=== PATIENT | male | born 1980 | race Caucasian/White ===

== ENCOUNTER 2016-06-06 14:29 | Emergency (ER) | payer OTHER ==
[~2016-06-06] VITALS: Ht 175.3 cm; Wt 75.0 kg
[2016-06-06 14:42] VITALS: Ht 175.3 cm; Wt 75.0 kg
[2016-06-06] MEDS ORDERED: SOD CHLORIDE 0.9% 1,000 ML IV STA (16:05)
[2016-06-06] MEDS ORDERED: ONDANSETRON 4 MG INJ IV STA (16:05)
[2016-06-06] MEDS ORDERED: LORAZEPAM 2 MG INJ IV ONE ×2 (16:30→18:00)
[2016-06-06] MEDS ORDERED: MECLIZINE 12.5 MG TAB PO ONE (16:30)
[2016-06-06 16:41] LABS: BASOPHILS % 0.4 % (0.0-2.0); EOSINOPHILS # 0.4 10^3/ul (0.0-0.5); EOSINOPHILS % 4.2 % (0.0-7.0); HEMATOCRIT 45.1 % (42.0-52.0); HEMOGLOBIN 15.7 g/dl (14.0-18.0); LYMPHOCYTES % 23.4 % (15.0-51.0); MEAN CORPUSCULAR HEMOGLOBIN 31.5 pg (29.0-33.0); MEAN CORPUSCULAR HGB CONC 34.8 g/dl (32.0-37.0); MEAN CORPUSCULAR VOLUME 90.6 fl (82.0-101.0); MEAN PLATELET VOLUME 7.5 fl (7.4-10.4); MONOCYTE # 0.6 10^3/ul (0.3-0.9); MONOCYTES % 6.9 % (0.0-11.0); NEUTROPHIL # 5.7 10^3/ul (1.6-7.5); NEUTROPHILS % 65.1 % (39.0-77.0); PLATELET COUNT 296 10^3/UL (140-440); RED BLOOD COUNT 4.98 10^6/ul (4.70-6.10); UNCORRECTED WBC 8.7 10^3/ul (4.8-10.8); WHITE BLOOD COUNT 8.7 10^3/ul (4.8-10.8)
[2016-06-06 16:43] LABS: CONDITION 1
--- NOTE | 2016-06-06 16:56 | RADRPT ---
PROCEDURE: CT Brain without contrast. CLINICAL INDICATION: Syncope. TECHNIQUE: A CT of the brain without contrast was performed utilizing axial sections from the skul l base through the vertex. The patient was scanned without intravenous contrast enhancement. Sagitta l and coronal reformatted images were obtained using the data from the axial images. Total exam DLP is 720.23 mGy-cm. CTDIvol is 43.48 mGy. One or more of the following dose reduction techniques we re used: Automated exposure control, adjustment of the mA and/or kV according to patient size, use o f iterative reconstruction technique. COMPARISON: None available FINDINGS: There is normal lawrence-white matter differentiation. The ventricles and cisterns are normal. There is no intracranial hemorrhage or space-occupying lesion. There is no skull fracture or lytic lesion. There is fluid in the left maxillary sinus. IMPRESSION: 1. Fluid in the left maxillary sinus. 2. No intracranial hemorrhage. 3. Otherwise normal noncontrast CT scan of the brain. RPTAT: QQ .Reuben Park MD, MD Date Time Electronically viewed and signed by .Reuben Park MD, on 06/06/2016 16:56 .R/
[2016-06-06 16:58] LABS: POTASSIUM 3.5 mmol/L (3.5-5.1)
[2016-06-06 17:00] LABS: CREATININE 0.94 mg/dl (0.61-1.24)
[2016-06-06 17:01] LABS: CALCIUM 10.1 mg/dl (8.4-10.2)
[2016-06-06] MEDS ORDERED: SOD CHLORIDE 0.9% 1,000 ML IV ONE (18:00)
[2016-06-06 18:14] LABS: D-DIMER 299.67 ng/ml (<460)
--- NOTE | 2016-06-06 18:48 | RADRPT ---
PROCEDURE: XR Chest. CLINICAL INDICATION: Cough, pain TECHNIQUE: Single frontal view of the chest was obtained COMPARISON: None FINDINGS: The heart and mediastinum are within normal limits. The lungs are clear. There is no pleural effusion or pneumothorax. RPTAT: AA IMPRESSION: No acute disease. .Harvinder Moody MD, Date Time Electronically viewed and signed by .Harvinder Moody MD, on 06/06/2016 18:48 .S/
[2016-06-06] MEDS ORDERED: LORA-441 PO (19:21)
--- NOTE | 2016-06-06 19:39 | ERD ---
ER Documentation Chief Complaint Date/Time DATE: 06/06/16 TIME: 19:24 Chief Complaint DIZZINESS,FEELING HEART BEATING FAST,TINGLING SENSATION ON THE HAND.NAUSEA HPI This is a 35-year-old male presents to the ER with chief complaint of dizziness and fast heart rate. Patient states that at 1 PM he started feeling dizzy and the room started spinning. Patient began to feel tunnel vision and became extremely nauseous. Patient states that last Monday he had an MRI of the brain and that contrast was used. My was done because patient has bilateral trigeminal neuralgia. Patient takes gabapentin for trigeminal neuralgia. Since Monday patient states he began to feel nauseous and developed a cough. Patient states that dizziness is worse whenever he gets up. Patient denies any chest pain however admits to some shortness of breath. Patient has not had any head trauma. Patient denies any vision loss or vision changes. ROS 12 point review of systems was done, all negative except per HPI. Medications Home Meds Active Scripts Lorazepam* (Ativan*) 0.5 Mg Tablet, 0.5 MG PO Q8H Y for ANXIETY, #10 TAB Prov:NORA BROWN 06/06/16 Allergies Allergies: Coded Allergies: iodine (Verified Allergy, Intermediate, SOB, 06/06/16) azithromycin (Verified Allergy, Mild, NAUSEA, 06/06/16) levofloxacin (Verified Allergy, Mild, JOINT PAIN, 06/06/16) meperidine (Verified Allergy, Mild, AUDITORY HALLUCINATIONS, 06/06/16) Uncoded Allergies: CT CONTRAST (Allergy, Mild, SOB, 06/06/16) PCN (Allergy, Mild, RASHES, 06/06/16) PMhx/Soc Hx Miscellaneous Medical Probl: Yes (TRIGEMINAL NEURALGIA) Physical Exam Vitals Vital Signs Date Time Temp Pulse Resp B/P Pulse Ox O2 Delivery O2 Flow Rate FiO2 06/06/16 17:51 141 22 144/94 100 Room Air 06/06/16 17:50 101 20 131/83 100 Room Air 06/06/16 17:18 125 06/06/16 14:42 98.1 118 18 141/84 98 Physical Exam GENERAL: The patient is well developed and appropriate for usual state of health , in no apparent distress. HEENT: Atraumatic. Conjunctivae are pink. Pupils equal, round, and reactive to light. Extraocular muscles are grossly intact. No nystagmus. Bilateral tympanic membranes are clear with no evidence of erythema, bulging or perforation. NECK: C-spine is soft and supple. There is no cervical lymphadenopathy. CHEST: Clear to auscultation bilaterally. There are no rales, wheezes or rhonchi. HEART: Regular rate and rhythm. No murmurs, clicks, rubs or gallops. EXTREMITIES: Equal pulses bilaterally. There is no peripheral clubbing, cyanosis or edema. No focal swelling or erythema. Full range of motion. Grossly neurovascularly intact. NEURO: Alert and oriented. Cranial nerves II through XII are intact. Motor strength in all 4 extremities with 5/5 strength. Sensation grossly intact. Normal speech and gait. Negative Rhomberg. +2 DTRs. SKIN: There is no apparent rash or petechia. The skin is warm and dry. Result Diagram: 06/06/16 1625 06/06/16 1625 Results 24 hrs Laboratory Tests Test 06/06/16 16:25 06/06/16 16:36 Anion Gap 19 Basophils # 0.010^3/ul Basophils % 0.4% Blood Urea Nitrogen 15mg/dl Calcium Level 10.1mg/dl Carbon Dioxide Level 25mmol/L Chloride Level 102mmol/L Creatinine 0.94mg/dl D-Dimer 299.67ng/ml D-Dimer Comment Eosinophils # 0.410^3/ul Eosinophils % 4.2% Glucose Level 97mg/dl Hematocrit 45.1% Hemoglobin 15.7g/dl Lymphocytes # 2.010^3/ul Lymphocytes % 23.4% Mean Corpuscular Hemoglobin 31.5pg Mean Corpuscular Hemoglobin Concent 34.8g/dl Mean Corpuscular Volume 90.6fl Mean Platelet Volume 7.5fl Monocytes # 0.610^3/ul Monocytes % 6.9% Neutrophils # 5.710^3/ul Neutrophils % 65.1% Nucleated Red Blood Cells # 0.010^3/ul Nucleated Red Blood Cells % 0.0/100WBC Platelet Count 18661^3/UL Potassium Level 3.5mmol/L Red Blood Count 4.9810^6/ul Red Cell Distribution Width 13.0% Sodium Level 142mmol/L Troponin I < 0.012ng/ml White Blood Count 8.710^3/ul Bedside Glucose 100mg/dL Current Medications Medications (Trade) Dose Ordered Sig/Yoshi Route PRN Reason Start Time Stop Time Status Last Admin Dose Admin Sodium Chloride (NS) 1,000 ml @ 1,000 mls/hr Q1H STAT IV 06/06/16 16:05 06/06/16 17:04 DC 06/06/16 16:33 Ondansetron HCl (Zofran Inj) 4 mg ONCE STAT IV 06/06/16 16:05 06/06/16 16:13 DC 06/06/16 16:32 Meclizine HCl (Antivert) 25 mg ONCE ONCE PO 06/06/16 16:30 06/06/16 16:31 DC 06/06/16 16:33 Lorazepam 1 mg 1 mg ONCE ONCE IV 06/06/16 16:30 06/06/16 16:31 DC 06/06/16 16:33 Sodium Chloride (NS) 1,000 ml @ 1,000 mls/hr Q1H ONCE IV 06/06/16 18:00 06/06/16 18:59 DC 06/06/16 18:21 Lorazepam (Ativan) 1 mg ONCE ONCE IV 06/06/16 18:00 06/06/16 18:03 DC 06/06/16 18:19 Procedures/MDM Differential Diagnosis includes but is not limited to; Benign positional vertigo , labyrinthitis, vertigo, MS, acoustic neuroma, arrhythmia, SD, pulmonary embolism anemia, hypoglycemia, infection, dehydration. This is a 35-year-old male presents to the ER with dizziness and elevated heart rate. EKG was done [address] elevation no T-wave inversion read by Dr. Baker. Troponin was negative, suspicion for acute SD is low. D-dimer was also negative suspicion for , he embolism is low. She does not have any evidence of anemia, hypoglycemia. She is afebrile and does not have an elevation in white blood cells I doubt infection. Patient was given 2 L of fluid and does not appear dehydrated. Patient may have labyrinthitis. He did have an upper respiratory infection last week is not complaining of a spinning sensation. Doubt acute intracranial pathology a CT scan was normal. I discussed this case with Dr. Foster. Because patient's heart rate was elevated every time he sat up we felt that it would be better that he would be admitted to the panel for observation. They should medical decision making, the patient felt more comfortable going home. He stated that he was feeling a little bit better and would like to try outpatient follow-up. Patient is not hypoxic or in any respiratory distress. Through the ER course lorazepam to help patient's feel better, he'll be sent home with lorazepam. Patient needs to follow-up with his primary care doctor and was advised to follow-up with a assistant front end manager as soon as possible. I also called poison control to make sure that patient's contrast even the MRI was not causing his symptoms, per poison control this was not a possibility. Departure Diagnosis: Primary Impression: Dizziness Condition: Stable Patient Instructions: Dizziness, Unk Cause Referrals: DANDRE CAGLE (PCP) Additional Instructions: Call your primary care doctor TOMORROW for an appointment during the next 1-2 days.See the doctor sooner or return here if your condition worsens before your appointment time. PLEASE F/U WITH A SPECIAL DAY CLASS TEACHER! NORA BROWN Jun 06, 2016 19:35
[2016-06-06 19:50] VITALS: BP 131/82; PULSE 102; RESP 22; TEMP 98.3
== END 2016-06-06 19:57 | disposition home or self-care (01) ==
LOC: FTE 14:29
DX: R42 Dizziness and giddiness (principal); R11.0 Nausea
CPT/HCPCS: 36415; 70450; 71010; 80048; 82962; 84484; 85025; 85378; 93005; 96374; 96375; 96376; 99285; J2060; J2405; J7030